=== PATIENT | male | born 1970 | race Caucasian/White ===

== ENCOUNTER 2016-11-10 17:10 | Emergency (ER) | payer BC, OTHER ==
[~2016-11-10] VITALS: Ht 185.4 cm; Wt 113.4 kg
[2016-11-10 17:49] VITALS: BP 134/86
== END 2016-11-10 20:50 | disposition home or self-care (01) ==
LOC: ER 17:12
DX: T22.111A Burn of first degree of right forearm, initial encounter (principal); T31.11 Burns involving 10-19% of body surface with 10-19% third degree burns; X19.XXXA Contact with other heat and hot substances, initial encounter; Y93.89 Activity, other specified; Y92.89 Other specified places as the place of occurrence of the external cause; Y99.8 Other external cause status
CPT/HCPCS: 16020; 99285; J7030